=== PATIENT | female | born 1985 | race Two or more races ===

== ENCOUNTER 2018-08-12 05:20 | Inpatient (IN) | payer OTHER ==
[2018-08-12] MEDS ORDERED: ELECTROLYTE-148 SOLN 1,000 ML IV SCH (05:30)
[2018-08-12 06:11] VITALS: BMI 32.1
[2018-08-12 06:19] LABS: BASO % 0.6 % (0-2.0); EOS % 2.7 % (0-4.5); HEMOGLOBIN 11.4 GM/dL (10.7-15.3); MCH 28.8 pg (25.7-33.7); MCHC 33.4 g/dl (32.0-36.0); MEAN CELL VOLUME 86.3 fl (80-96); MEAN PLT VOLUME 7.2 fl (7.5-11.1); MONO % 5.9 % (3.8-10.2); NEUT % 67.8 % (42.8-82.8); PLATELET COUNT 324 K/MM3 (134-434); RBC 3.94 M/mm3 (3.60-5.2); RDW 13.3 % (11.6-15.6); URINE APPEARANCE CLEAR; URINE BILIRUBIN NEGATIVE (<2.0 mg/dL); URINE COLOR STRAW; URINE GLUCOSE (UA) NEGATIVE (NEGATIVE); URINE KETONE NEGATIVE (NEGATIVE); URINE LEUK ESTERASE NEGATIVE (NEGATIVE); URINE NITRITE NEGATIVE (NEGATIVE); URINE PROTEIN NEGATIVE (NEGATIVE); URINE UROBILINOGEN NEGATIVE mg/dL (0.2-1.0)
[2018-08-12 06:31] LABS: EPI CELLS RARE /HPF (FEW); INR 0.96 (0.83-1.09); PROTHROMBIN TIME (PATIENT) 11.3 SEC (9.7-13.0); URINE MUCUS RARE
[2018-08-12 06:34] LABS: ACTIVATED PTT 23.3 SECONDS (25.2-36.5)
[2018-08-12 06:40] LABS: ALBUMIN 2.8 g/dl (3.4-5.0); ALK PHOS 134 U/L (45-117); ANION GAP 10 MMOL/L (8-16); BILIRUBIN,TOTAL 0.3 mg/dL (0.2-1); BLOOD UREA NITROGEN 13 mg/dL (7-18); CALCIUM 8.5 mg/dL (8.5-10.1); CHLORIDE 107 mmol/L (98-107); CO2 21 mmol/L (21-32); CREATININE 0.5 mg/dL (0.55-1.3); GLUCOSE,RANDOM 79 mg/dL (74-106); POTASSIUM 3.9 mmol/L (3.5-5.1); SGOT/AST 13 U/L (15-37); SGPT/ALT 12 U/L (13-61); SODIUM 137 mmol/L (136-145); TOT PROT 6.8 g/dl (6.4-8.2)
[2018-08-12 06:46] LABS: COCAINE, UR NEGATIVE ng/ml (CUTOFF=300); METHADONE, UR NEGATIVE ng/ml (CUTOFF=300); OPIATES, URI NEGATIVE ng/ml (CUTOFF=300); PHENCYCLIDINE,URINE NEGATIVE ng/ml (CUTOFF=25); URINE AMPHETAMINES NEGATIVE ng/ml (CUTOFF=500); URINE BARBITURATES NEGATIVE ng/ml (CUTOFF=200); URINE BENZODIAZEPINES NEGATIVE ng/ml (CUTOFF=200)
[2018-08-12] MEDS ORDERED: SODIUM PHOSPHATE/NA BIPHOS 133 ML ENEMA PR ONE (07:00)
--- NOTE | 2018-08-12 07:19 | HP ---
Past Medical History - Primary Care Physician PCP:: Quita Coburn - Admission Chief Complaint: 33 yrs 38 weeks , srom since 4.10 AM, , onset LP 5.00 AM. [facility] In [facility] with [facility] History of Present Illness: wt gain 33 lbs Labs noted from ptient's Portal 01/09/18 Hbsag neg, Rubella .5), Rpr nr, O Pos, Hep C -nr , Pap nilm , Gc/Ct culture neg , melissa pos, Bv neg, trich neg 01/16/18 Hiv neg, parvovirus -B19 Igg 6.3, Igm Neg ,Toxoplasmosis Igg 8.2, Igm neg , Rpr nr, Hsv 1 Igg +ve 1.11, , Hsv -2 Igg9.96 pos, Hsv1 & Hsv2 Igm neg CF neg, Lead neg , Varicella immune , Sickle neg, h/h 12.1/, urine culture neg 01/22/18 Tsh 0.09, free T41.2, C5Bxwlpp index 21 . Treated with rx Terazol crem vaginal pt was on Po Throxine 125 mcg, she was instructed to stop in 05/10/18 TFT wnl H3fowlhi 1.45, total T4 10.1 , tsh 1.03, Free T4 1.0 Hgb 11.6, Hct 34.4, Wbc 9.74, Plt 358 Hgb A1c 5.2, 1 hr GTT 74 . 06/12/18 Vulva culture for HSV neg 07/20/18 Bv pos, melissa neg , trich neg, , Hiv neg, Rpr nr, Gbs neg Rx po Valtrex 1 gm daily since June Rx clindamycin vag gel in Jun for 7 days completed last sono & Bpp done on 07/20/18 anatomy sono & Nuchal test done results not known History Source: Patient, Medical Record Limitations to Obtaining History: No Limitations - Past Medical History PRN OCCUPATIONAL THERAPIST: No: Migraine, Seizure Cardiovascular: No: HTN Pulmonary: No: Asthma Gastrointestinal: Yes: Constipation, Hemorrhoids Hepatobiliary: No: Hepatitis B, Hepatitis C Renal/: No: UTI ...: 3 ...Para: 2 (11/01/09 6lbs,girl ( [place] [facility]), 06/12/14 girl, [address] [place] ) ...Term: 2 ...: 0 ...Spon : 0 ...Induced : 0 ...Multiple Gestation: 0 ...LMP: 11/19/17 ... 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 No: HIV Psych: No: Addictions, Anxiety, Bipolar, Depression Endocrine: Yes: Hypothyroidism (pt was treated during pregn with 125 mg Synthroid , & discontinued due to normal TFT) - Past Surgical History Past Surgical History: Yes: None Hx Myomectomy: No Hx Transabdominal Cerclage: No - Smoking History Smoking history: Never smoked Have you smoked in the past 12 months: No - Alcohol/Substance Use Hx Alcohol Use: No History of Substance Use: reports: None Home Medications - Allergies Allergies/Adverse Reactions: Allergies Allergy/AdvReac Type Severity Reaction Status Date / Time No Known Allergies Allergy Verified 08/12/18 06:15 - Home Medications Home Medications: Ambulatory Orders Vitamins (Sjr) - 1 tab PO DAILY 08/12/18 Valacyclovir HCl [Valtrex -] 1,000 mg PO DAILY 08/12/18 Physical Exam - Maternity Vital Signs: Vital Signs Temperature 98.3 F 08/12/18 05:20 Pulse Rate 89 08/12/18 05:20 Respiratory Rate 20 08/12/18 05:20 Blood Pressure 115/69 08/12/18 05:20 O2 Sat by Pulse Oximetry (%) Selected Entries 08/12/18 05:20 Weight 193 lb Constitutional: Yes: Well Nourished, No Distress Eyes: Yes: WNL HENT: Yes: WNL, Normocephalic Neck: Yes: WNL Cardiovascular: Yes: WNL, Regular Rate and Rhythm Lungs: Clear to auscultation Breast(s): Yes: WNL - Abdominal Exam/OB Fundal Height: 38 Number of Fetuses: Single Presentation: Vertex Contractions: Yes Regularity: Irregular (3-5 min) Intensity: Mild Monitor Mode: External Heart Rate (range): 150 Heart Rate Location: [facility] Category: I Accelerations: Uniform Decelerations: None - Vaginal Exam/OB Vaginal Bleediing: No Dilatation (cm): 1-2 Effacement (%): 60 Amniotic Membrane Status: Ruptured Nitrazine Test: Positive Amniotic Fluid: Yes: Clear Presentation: Vertex/Position Station: -3 - Physical Exam Musculoskeletal: Yes: WNL Extremities: Yes: WNL. No: Calf Tenderness Edema: LLE: Trace, RLE: Trace Integumentary: Yes: Body Piercing (vulva ring) Deep Tendon Reflex Grade: Normal +2 ...Motor Strength: WNL Psychiatric: Yes: WNL, Alert, Oriented - Labs Lab Results: CBC, BMP 08/12/18 06:00 08/12/18 06:00 Laboratory Tests 08/12/18 08/12/18 08/12/18 06:00 06:00 06:00 PT with INR 11.30 INR 0.96 PTT (Actin FS) 23.3 L AST 13 L ALT 12 L Urine Protein Negative Opiates Screen Methadone Screen Barbiturate Screen Phencyclidine Screen Ur Amphetamines Screen MDMA (Ecstasy) Screen Benzodiazepines Screen Cocaine Screen U Marijuana (THC) Screen 08/12/18 06:00 PT with INR INR PTT (Actin FS) AST ALT Urine Protein Opiates Screen Negative Methadone Screen Negative Barbiturate Screen Negative Phencyclidine Screen Negative Ur Amphetamines Screen Negative MDMA (Ecstasy) Screen Negative Benzodiazepines Screen Negative Cocaine Screen Negative U Marijuana (THC) Screen Negative Laboratory Tests 08/12/18 10:45 Blood Type O POSITIVE Problem List - Problems (1) with 38 completed weeks gestation Code(s): Z3A.38 - 38 WEEKS GESTATION OF (2) SROM (spontaneous rupture of membranes) Code(s): UTO7941 - (3) with care elsewhere, antepartum Code(s): Z34.90 - ENCNTR FOR SUPRVSN OF NORMAL , UNSP, UNSP TRIMESTER Assessment/Plan 33 yrs , 38 weeks SROM, Gbs neg in latent labor . Plan Pitocun augmentation . Trial vaginal delivery
[2018-08-12] MEDS ORDERED: OXYTOCIN 20 UNITS in 0.9% NS 20 UNIT/1,000 ML INFUS.BAG IV ONE (07:35)
[2018-08-12] MEDS ORDERED: OXYTOCIN 30 UNITS in 0.9% NS 30 UNIT/500 ML INFUS.BAG IVPB SCH (07:45)
[2018-08-12] MEDS ORDERED: TUBERCULIN PPD 5 TU/0.1ML SYRINGE (IN PATIENT USE ONLY) ID ONE (11:00)
[2018-08-12] MEDS ORDERED: FENTANYL/BUPIVACAINE/NS/PF - PCEA - 50 ML DISP.SYRIN EP ONE (11:22)
--- NOTE | 2018-08-12 12:57 | PN ---
Progress Note, Labor Vaginal Exam #1 Labor Exam Date: 08/12/18 Labor Exam Time: 12:30 Heart Rate (range): 140 Dilatation: 5 Effacement (%): 90 Amniotic Membrane Status: Ruptured Presentation: Vertex/Position (scalp electrode applied) Station: 0 Remarks: FHR , base line 150, FHR cat-2 , variable decels moderate down to 100 bpbm ,40 sec uc 3 -4 min . 7.30 AM Pitocin Augmentation started . 11.35 AM Epidural labor analgesia given Selected Entries 08/12/18 10:00 Temperature 98.4 F Pulse Rate 86 Blood Pressure 116/74 Vaginal Exam #2 Labor Exam Date: 08/12/18 Labor Exam Time: 13:05 Heart Rate (range): 140-90 Dilatation: 10 Effacement (%): 100 Amniotic Membrane Status: Ruptured Presentation: Vertex/Position Station: +2 Remarks: FHR cat-2 UC q 2 min pt pushing
[2018-08-12] MEDS ORDERED: LIDOCAINE HCL 1% PRESERVATIVE FREE - 30ML VIAL ONE ×2 (13:01→14:49)
[2018-08-12] MEDS ORDERED: ACETAMINOPHEN 325 MG TABLET (FP) PO PRN (13:31)
[2018-08-12] MEDS ORDERED: BENZOCAINE 28 GM HEMORRHOIDAL OINTMENT TP PRN (13:31)
[2018-08-12] MEDS ORDERED: BENZOCAINE 20% 57 GM BOTTLE TP PRN (13:31)
[2018-08-12] MEDS ORDERED: METHYLERGONOVINE MALEATE 0.2 MG/1 ML AMP IM PRN (13:31)
[2018-08-12] MEDS ORDERED: BISACODYL 10 MG SUPP.RECT RC PRN (13:31)
[2018-08-12] MEDS ORDERED: WITCH HAZEL 50% (TUCKS) 40 PAD/JAR PAD TP PRN (13:31)
--- NOTE | 2018-08-12 13:42 | PN ---
Delivery - Delivery Vaginal Delivery: No Problems, Spontaneous (Baby delievered in LEE position, 9/9,Boy with intact perineum.) Type of Anesthesia: Epidural Episiotomy/Laceration: None EBL (cc): 250 Delivery, Single - Stages of Labor Date 1st Stage Initiatied: 08/12/18 Time 1st Stage Initiated: 05:00 Date 2nd Stage Initiated: 08/12/18 Time 2nd Stage Initiated: 13:05 Date of Delivery: 08/12/18 Time of Delivery: 13:17 Date Placenta Delivered: 08/12/18 Time Placenta Delivered: 13:20 Placenta: Yes: Spontaneous, Uterine Exploration - Condition of Cold Roller/Box Lining Machine Operator Present: No Gender: Male Weight: 6 lb 3 oz Position: Right, OA Total Hours ROM (Hrs/Mins): 9hrs 10 min - 1 Minute Total Score: 9 5 Minutes Total Score: 9 - Feeding Plan Initial Plan: Elected not to breastfeed exclusively throughout hospitalization Remarks - Remarks Remarks: 33 yrs , 38 weeks , srom since 4.10 AM , GBS neg care elsewhere Intrapartum Pitocin Augmentation given intrapartum course uneventful
[2018-08-12] MEDS ORDERED: OXYTOCIN 20 UNITS in 0.9% NS 20 UNIT/1,000 ML INFUS.BAG IV SCH (13:45)
[2018-08-12] MEDS: FERROUS SO4 325 MG TABLET (FP) PO SCH (17:47)
[2018-08-12] MEDS: IBUPROFEN 600 MG TABLET (FP) PO PRN (21:21)
[2018-08-13 06:06] LABS: HBsAG SCREEN Negative (Negative)
[2018-08-13] MEDS: IBUPROFEN 600 MG TABLET (FP) PO PRN ×2 (06:29→23:23)
[2018-08-13] MEDS: oxyCODONE HCL 5 MG TABLET PO PRN ×2 (06:29→23:23)
[2018-08-13 08:13] LABS: BASO % 0.7 % (0-2.0); HEMATOCRIT 30.7 % (32.4-45.2); HEMOGLOBIN 10.1 GM/dL (10.7-15.3); MCH 28.9 pg (25.7-33.7); MCHC 32.9 g/dl (32.0-36.0); MEAN CELL VOLUME 87.8 fl (80-96); MEAN PLT VOLUME 7.5 fl (7.5-11.1); MONO % 5.6 % (3.8-10.2); NEUT % 69.7 % (42.8-82.8); PLATELET COUNT 298 K/MM3 (134-434); RDW 13.8 % (11.6-15.6); WHITE BLOOD COUNT 10.2 K/mm3 (4.0-10.0)
[2018-08-13] MEDS: PRENATAL VITAMINS W/ FOLIC ACID TABLET (FP) PO SCH (09:52)
[2018-08-13] MEDS: FERROUS SO4 325 MG TABLET (FP) PO SCH ×2 (09:52→17:15)
[2018-08-13] MEDS ORDERED: DIPHTH,PERTUSS(ACELL),TET 0.5 ML DISP.SYRIN IM ONE (10:00)
--- NOTE | 2018-08-13 13:12 | PN ---
Post Progress Note Type of Delivery: Vital Signs: Vital Signs Temperature 98.5 F 08/13/18 10:00 Pulse Rate 63 08/13/18 10:00 Respiratory Rate 20 08/13/18 10:00 Blood Pressure 97/55 L 08/13/18 10:00 O2 Sat by Pulse Oximetry (%) 99 08/12/18 12:15 Uterus: Yes: Fundus Firm Lochia: Yes: Rubra Lochia, amount: Small Extremities: Yes: Calves non-tender Perineum: Yes: Intact Activity: Ambulating - Labs Labs: CBC WBC 10.2 K/mm3 (4.0-10.0) H 08/13/18 07:00 RBC 3.50 M/mm3 (3.60-5.2) L 08/13/18 07:00 Hgb 10.1 GM/dL (10.7-15.3) L 08/13/18 07:00 Hct 30.7 % (32.4-45.2) L 08/13/18 07:00 MCV 87.8 fl (80-96) 08/13/18 07:00 MCH 28.9 pg (25.7-33.7) 08/13/18 07:00 MCHC 32.9 g/dl (32.0-36.0) 08/13/18 07:00 RDW 13.8 % (11.6-15.6) 08/13/18 07:00 Plt Count 298 K/MM3 (134-434) 08/13/18 07:00 MPV 7.5 fl (7.5-11.1) 08/13/18 07:00 Absolute Neuts (auto) 7.1 K/mm3 (1.5-8.0) 08/13/18 07:00 Neutrophils % 69.7 % (42.8-82.8) 08/13/18 07:00 Lymphocytes % 21.0 % (8-40) 08/13/18 07:00 Monocytes % 5.6 % (3.8-10.2) 08/13/18 07:00 Eosinophils % 3.0 % (0-4.5) 08/13/18 07:00 Basophils % 0.7 % (0-2.0) 08/13/18 07:00 Nucleated RBC % 0 % (0-0) 08/13/18 07:00 Assessment/Plan 33yo s/p Routine PP care D/C to home tomorrow Joselin Marmolejo MD
[2018-08-13] MEDS ORDERED: SENNOSIDES/DOCUSATE COMBO (SENNA PLUS) TABLET (UD) PO PRN (22:00)
[2018-08-13 22:10] VITALS: TEMP 98.6
--- NOTE | 2018-08-14 06:14 | PN ---
Progress Note (short form) - Note Progress Note: ppd 2 no c/o , no excess vaginal bleeding CBC, BMP 08/13/18 07:00 08/12/18 06:00 Last Vital Signs Temp Pulse Resp BP Pulse Ox 98.6 F 94 H 20 98/67 99 08/13/18 22:00 08/13/18 22:00 08/13/18 22:00 08/13/18 22:00 08/12/18 12:15 abdomen soft, uterus firm, non tender lochia mild no calf tenderness plan d/c home , rtc 4 weeks
--- NOTE | 2018-08-14 07:55 | DS ---
Physical Exam-SHIFT MANAGER Vital Signs: Vital Signs Temperature 98.6 F 08/13/18 22:00 Pulse Rate 94 H 08/13/18 22:00 Respiratory Rate 20 08/13/18 22:00 Blood Pressure 98/67 08/13/18 22:00 O2 Sat by Pulse Oximetry (%) 99 08/12/18 12:15 Constitutional: Yes: Well Nourished Eyes: Yes: WNL HENT: Yes: WNL, Normocephalic Neck: Yes: WNL Cardiovascular: Yes: WNL Respiratory: Yes: WNL Gastrointestinal: Yes: WNL ...Rectal Exam: Yes: WNL Renal/: Yes: WNL Pelvis: Yes: WNL External Genitalia: Yes: Normal Vaginal Exam: Yes: Normal ....Post : Yes: Uterus firm, Uterus non-tender, Moderate lochia rubra ( perineum intact) Breast(s): Yes: WNL (breast feeding) Musculoskeletal: Yes: WNL Extremities: Yes: WNL. No: Calf Tenderness Edema: LLE: Trace, RLE: Trace Integumentary: Yes: WNL Neurological: Yes: WNL ...Motor Strength: WNL Psychiatric: Yes: WNL Labs: CBC, BMP 08/13/18 07:00 08/12/18 06:00 Delivery - Delivery Vaginal Delivery: No Problems, Spontaneous (Baby delievered in LEE position, 9/9,Boy with intact perineum.) Type of Anesthesia: Epidural Episiotomy/Laceration: None EBL (cc): 250 Delivery, Single - Stages of Labor Date 1st Stage Initiatied: 08/12/18 Time 1st Stage Initiated: 05:00 Date 2nd Stage Initiated: 08/12/18 Time 2nd Stage Initiated: 13:05 Date of Delivery: 08/12/18 Time of Delivery: 13:17 Time Placenta Delivered: 13:20 Placenta: Yes: Spontaneous, Uterine Exploration - Condition of Lead Systems Analyst/Dinkey Locomotive Operator Present: No Gender: Male Weight: 6 lb 3 oz Position: Right, OA Total Hours ROM (Hrs/Mins): 9hrs 10 min - 1 Minute Total Score: 9 5 Minutes Total Score: 9 - Feeding Plan Initial Plan: Elected not to breastfeed exclusively throughout hospitalization Remarks - Remarks Remarks: 33 yrs , 38 weeks , srom since 4.10 AM , GBS neg care elsewhere Intrapartum Pitocin Augmentation given intrapartum course uneventful post course uneventful anemia counselled discharge today by Dr Justice. Discharge Summary Reason For Visit: LABOR Current Active Problems with 38 completed weeks gestation (Acute) with care elsewhere, antepartum (Acute) SROM (spontaneous rupture of membranes) (Acute) Condition: Good - Instructions Diet, Activity, Other Instructions: regular diet, follow up [facility] care 4 weeks, if fever, heavy vaginal bleeding , pain , fever.call MD Referrals: Quita Coburn MD [Staff Physician] - Disposition: HOME - Home Medications Comprehensive Discharge Medication List: Ambulatory Orders Vitamins (Sjr) - 1 tab PO DAILY 08/12/18 Valacyclovir HCl [Valtrex -] 1,000 mg PO DAILY 08/12/18 Ibuprofen [Motrin -] 600 mg PO QID #28 tablet 08/13/18
[2018-08-14] MEDS: FERROUS SO4 325 MG TABLET (FP) PO SCH (09:13)
[2018-08-14] MEDS: PRENATAL VITAMINS W/ FOLIC ACID TABLET (FP) PO SCH (09:13)
[2018-08-14 10:34] VITALS: BP 116/80; PULSE 84
== END 2018-08-14 12:55 | disposition home or self-care (01) | DRG 560 ==
LOC: JLDR 05:20 → J3W 14:35
PROVIDERS: ADMIT Obstetrics & Gynecology; ATTEND Obstetrics & Gynecology
PROC: 10E0XZZ Delivery of Products of Conception, External Approach (ICD-10-PCS; principal; 2018-08-12)
DX: O80 Encounter for full-term uncomplicated delivery (principal); Z3A.38 38 weeks gestation of pregnancy; Z37.0 Single live birth
CPT/HCPCS: 36415; 59409; 80053; 80307; 81003; 81015; 85025; 85610; 85730; 86593; 86762; 86850; 86900; 86901; 87340; 90686; 90715; G0008

== ENCOUNTER 2021-12-24 12:33 | Inpatient (IN) | payer OTHER ==
[2021-12-24 13:54] VITALS: BMI 30.4
[2021-12-24 14:16] LABS: BASO % 0.6 % (0-2.0); EOS % 2.5 % (0-4.5); HEMATOCRIT 35.3 % (32.4-45.2); HEMOGLOBIN 11.9 GM/dL (10.7-15.3); MCH 29.5 pg (25.7-33.7); MCHC 33.8 g/dl (32.0-36.0); MEAN CELL VOLUME 87.3 fl (80-96); MEAN PLT VOLUME 7.2 fl (7.5-11.1); MONO % 5.6 % (3.8-10.2); NEUT % 72.3 % (42.8-82.8); PLATELET COUNT 395 10^3/uL (134-434); RBC 4.04 M/mm3 (3.60-5.2); WHITE BLOOD COUNT 9.4 K/mm3 (4.0-10.0)
[2021-12-24 14:24] LABS: INR 1.01 (0.83-1.09); PROTHROMBIN TIME (PATIENT) 11.6 SEC (9.7-13.0)
[2021-12-24 14:27] LABS: ACTIVATED PTT 26.8 SECONDS (25.2-36.5)
[2021-12-24 14:33] LABS: BLOOD UREA NITROGEN 7.2 mg/dL (7-18); CALCIUM 9.9 mg/dL (8.5-10.1)
[2021-12-24 14:37] LABS: CREATININE 0.6 mg/dL (0.55-1.3)
[2021-12-24] MEDS ORDERED: AMPICILLIN SODIUM 2 GM VIAL ONE (14:57)
[2021-12-24] MEDS ORDERED: OXYTOCIN 30 UNITS in 0.9% NS 30 UNIT/500 ML INFUS.BAG IVPB ONE (14:58)
[2021-12-24] MEDS: ELECTROLYTE-148 SOLN 1,000 ML IV SCH ×2 (15:00→23:45)
[2021-12-24] MEDS ORDERED: OXYTOCIN 30 UNITS in 0.9% NS 30 UNIT/500 ML INFUS.BAG IVPB SCH (15:30)
[2021-12-24] MEDS ORDERED: AMPICILLIN - 2 GM in SODIUM CHLORIDE 100 ML IVPB ONE (15:45)
[2021-12-24] MEDS ORDERED: AMPICILLIN SODIUM 1 GM VIAL ONE ×2 (18:43→23:06)
[2021-12-24] MEDS: AMPICILLIN - 1 GM in SODIUM CHLORIDE 100 ML IVPB SCH ×2 (19:00→23:10)
[2021-12-24] MEDS ORDERED: FENTANYL/BUPIVACAINE/NS/PF - PCEA - 50 ML DISP.SYRIN EP ONE (22:25)
[2021-12-24] MEDS: FENTANYL/BUPIVACAINE/NS/PF - PCEA - 50 ML DISP.SYRIN EP SCH (22:35)
[2021-12-24] MEDS ORDERED: NALOXONE HCL 0.4 MG/ML VIAL IVPUSH PRN (22:43)
[2021-12-25] MEDS ORDERED: AMPICILLIN SODIUM 1 GM VIAL ONE ×2 (03:01→06:38)
[2021-12-25] MEDS ORDERED: FENTANYL/BUPIVACAINE/NS/PF - PCEA - 50 ML DISP.SYRIN EP ONE ×2 (03:02→06:38)
[2021-12-25] MEDS: AMPICILLIN - 1 GM in SODIUM CHLORIDE 100 ML IVPB SCH ×2 (03:05→06:45)
[2021-12-25] MEDS: FENTANYL/BUPIVACAINE/NS/PF - PCEA - 50 ML DISP.SYRIN EP SCH ×2 (03:05→06:45)
[2021-12-25] MEDS ORDERED: OXYTOCIN 20 UNITS in 0.9% NS 20 UNIT/1,000 ML INFUS.BAG IV ONE (07:08)
[2021-12-25] MEDS ORDERED: BENZOCAINE 28 GM HEMORRHOIDAL OINTMENT TP PRN (07:53)
[2021-12-25] MEDS ORDERED: WITCH HAZEL 50% (TUCKS) 40 PAD/JAR PAD TP PRN (07:53)
[2021-12-25] MEDS ORDERED: oxyCODONE HCL 5 MG TABLET PO PRN (07:53)
[2021-12-25] MEDS ORDERED: BISACODYL 10 MG SUPP.RECT RC PRN (07:53)
[2021-12-25] MEDS ORDERED: METHYLERGONOVINE MALEATE 0.2 MG/1 ML AMP IM PRN (07:53)
[2021-12-25] MEDS ORDERED: ACETAMINOPHEN 325 MG TABLET (FP) PO PRN (07:53)
[2021-12-25] MEDS ORDERED: BENZOCAINE 20% 57 GM BOTTLE TP PRN (07:53)
[2021-12-25] MEDS ORDERED: OXYTOCIN 20 UNITS in 0.9% NS 20 UNIT/1,000 ML INFUS.BAG IV SCH (08:00)
[2021-12-25] MEDS: IBUPROFEN 600 MG TABLET (FP) PO PRN ×2 (11:54→19:36)
[2021-12-25] MEDS ORDERED: BUPIVACAINE HCL/PF 0.25% (2.5MG/ML) 10 ML VIAL ONE (12:37)
[2021-12-26 09:16] LABS: BASO % 0.8 % (0-2.0); EOS % 5.3 % (0-4.5); HEMATOCRIT 34.2 % (32.4-45.2); HEMOGLOBIN 11.7 GM/dL (10.7-15.3); LYMPH % 21.2 % (8-40); MCHC 34.1 g/dl (32.0-36.0); MONO % 3.9 % (3.8-10.2); NEUT % 68.8 % (42.8-82.8); PLATELET COUNT 336 10^3/uL (134-434); RBC 3.89 M/mm3 (3.60-5.2); RDW 14.2 % (11.6-15.6); WHITE BLOOD COUNT 9.8 K/mm3 (4.0-10.0)
[2021-12-26 10:06] VITALS: BP 110/63; PULSE 68; TEMP 98.1
[2021-12-26] MEDS ORDERED: SENNOSIDES/DOCUSATE COMBO (SENNA PLUS) TABLET (UD) PO PRN (22:00)
== END 2021-12-26 13:50 | disposition home or self-care (01) | DRG 560 ==
LOC: JLDR 12:33 → J3W 12-25 10:30
PROVIDERS: ADMIT Specialist; ATTEND Specialist
PROC: 10E0XZZ Delivery of Products of Conception, External Approach (ICD-10-PCS; principal; 2021-12-25)
PROC: 10907ZC Drainage of Amniotic Fluid, Therapeutic from Products of Conception, Via Natural or Artificial Opening (ICD-10-PCS; 2021-12-25)
DX: O36.5930 Maternal care for other known or suspected poor fetal growth, third trimester, not applicable or unspecified (principal); Z3A.36 36 weeks gestation of pregnancy; Z37.0 Single live birth
CPT/HCPCS: 36415; 59409; 80048; 85025; 85610; 85730; 86780; 86850; 86900; 86901; C9803-CS; U0003; U0005